=== PATIENT | female | born 2000 | race Caucasian/White ===

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

== ENCOUNTER → 2020-12-23 10:09 | Outpatient (BNVA) | payer MEDICAID, SELFPAY | PROVIDERS: Family Provider Family Medicine; PCP Family Medicine; Visit Provider Family Medicine Adult Medicine | DX: Z34.90 Encounter for supervision of normal pregnancy, unspecified, unspecified trimester (principal) | CPT/HCPCS: 81025 ==

== ENCOUNTER → 2020-12-24 10:22 | Outpatient (BNVA) | payer MEDICAID, SELFPAY | PROVIDERS: Family Provider Family Medicine; PCP Family Medicine; Visit Provider Nurse Practitioner Women's Health | DX: Z34.01 Encounter for supervision of normal first pregnancy, first trimester (principal) | CPT/HCPCS: 84315; 84702 ==

== ENCOUNTER 2021-07-03 22:56 | Inpatient (IN) | payer MEDICAID, SELFPAY ==
[2021-07-03 23:14] VITALS: TEMP 37.2
[2021-07-03 23:15] VITALS: BP 141/100; PULSE 95
[2021-07-03 23:31] VITALS: BP 137/89; PULSE 88
[2021-07-03 23:46] VITALS: BP 146/102; PULSE 85
[2021-07-04] VITALS (40 sets, daily range): BP systolic 118–186; BP diastolic 61–123; PULSE 60–114; RESP 15–18; TEMP 36.8–36.9; O2SAT 96–100
--- NOTE | 2021-07-04 00:23 | USR_ITS ---
PROCEDURE INFORMATION: Exam: US Biophysical Profile Without Non-Stress Test Exam date and time: 07/04/2021 12:23 AM Age: 20 years old Clinical indication: Other: Non reassuring heart tones; ; Additional info: Decreased movement, non reasurring heart tones. 30-31 weeks gestational age. TECHNIQUE: Imaging protocol: US biophysical profile without non-stress testing. COMPARISON: US OB >= 14 weeks fetus [id number] 04/27/2021 1:03 PM FINDINGS: Single living fetus in cephalic position. heart activity documented by the technologist, 153 bpm. Biophysical profile was 10/18. Credit given for amniotic fluid. No credit for breathing, tone, or movement. Anterior placenta. Amniotic fluid volume appears within normal limits for gestation, JET 7.7 cm. measurements were not obtained at this time. Evaluation of anatomy was not performed at this time. Cervical length was estimated with transabdominal scanning, measuring approximately 4.3 cm. No definite cervical canal dilation or fluid on the provided images. The cervix is not well visualized with transabdominal scanning at this time. The urinary bladder was not completely evaluated/imaged at this time. US/US OB BPP wo NST [id number] IMPRESSION: 1. Single living intrauterine fetus, details above. 2. Biophysical profile 10/18, see above details. 3. Amniotic fluid volume appears within normal limits for gestation, JET 7.7 cm. 4. Other details discussed above. Radiation Dose CTDIVOL = (mGy): DLP = (mGy-cm)
[2021-07-04] MEDS: dextrose 5%-lactated ringers 1,000 ML 999 ML IV (01:15)
[2021-07-04] MEDS: labetalol 200 mg Tablet 100 MG PO (01:27)
[2021-07-04 01:32] LABS: Basophils # 0.1 10^3/uL (0.0-0.1); Basophils % 0.3 %; Eosinophils # 0.2 10^3/uL (0.0-0.8); Eosinophils % 1.1 %; Hematocrit 35.4 % (37.0-47.0); Lymphocytes # 4.4 10^3/uL (1.5-6.5); Mean Corpuscular HGB Conc 33.9 g/dL (30.0-36.0); Mean Corpuscular Hemoglobin 31.1 pg (28.0-34.0); Mean Corpuscular Volume 91.7 fl (81-99); Mean Platelet Volume 10.9 fL (7.4-10.4); Monocytes % 6.8 %; Neutrophils # 8.92 10^3/uL (1.8-8.0); Neutrophils % 61.5 %; Nucleated Red Blood Cells % 0 %; Platelet Count 180 10^3/cmm (130-400); Red Blood Count 3.86 10^6/uL (4.1-5.3); Red Cell Distribution Width 12.7 % (12.1-15.1); White Blood Count 14.5 10^3/uL (4.5-13.0)
[2021-07-04 01:33] LABS: Urine Appearance Clear (CLEAR); Urine Color Yellow (Yellow)
[2021-07-04 01:34] LABS: Add Urine Microscopic? YES; Bilirubin Urine Neg (Negative); Blood Urine Neg (Negative); Glucose Urine UA Norm (Normal); Ketones Urine Negative (Negative); Leukocyte Esterase Urine Negative (Negative); Nitrate Urine Negative (Negative); Protein Urine 3+ (Negative); Urobilinogen Urine Norm (Negative); pH Urine 5 (5-7)
[2021-07-04] MEDS: metoclopramide 5 mg/mL SDV 2 mL 10 MG IVP (01:36)
[2021-07-04] MEDS: famotidine 20 mg/2 mL INJ IVP (01:37)
[2021-07-04 01:44] LABS: Add Urine Culture? No; Bacteria Urine 1+ /hpf; Calcium Oxalate Crystals Urine 15-25 /hpf; Hyaline Casts Urine 0-4 /lpf; RBC Urine 0-4 /hpf (0-2); Squamous Epithelial Cell Urine 15-25 /hpf (0-5); WBC Urine 0-4 /hpf (0-5)
[2021-07-04 01:58] LABS: Alanine Aminotransferase 9 U/L (0-33); Albumin Level 3.1 g/dL (3.5-5.2); Alkaline Phosphatase 138 IU/L (35-105); Anion Gap 16.2 (5-19); Aspartate Amino Transferase 13 U/L (0-32); Blood Urea Nitrogen 11 mg/dL (6-20); Calcium 8.9 mg/dL (8.5-10.5); Carbon Dioxide 21 mmol/L (22-29); Chloride 106 mmol/L (98-107); Globulin 2.5 g/dL (1.3-4.6); Glomerular Filtration Rate 127.5 mL/min (90-130); Glucose 110 mg/dL (65-115); Osmolality Calculated 288 mOsm/kg (285-295); Potassium 4.2 mmol/L (3.5-5.1); Sodium 139 mmol/L (136-145); Total Bilirubin 0.2 mg/dL (0.15-1.2); Total Protein 5.6 g/dL (6.6-8.7); Uric Acid 5.9 mg/dL (2.4-5.7)
[2021-07-04 01:59] LABS: Urine Creatinine 109 mg/dL (28-217)
[2021-07-04] MEDS: ketorolac 30 mg/mL INJ IVP ×4 (02:01→21:59)
--- NOTE | 2021-07-04 02:07 | PC.NURSE ---
DR. ZAVALA GAVE PT IM PITOCIN INTO PT UTERUS AT THIS TIME
[2021-07-04 02:13] LABS: UPRO/UCREAT Ratio 3.57 mg/mg CR; Urine Protein Random 389 mg/dL
--- NOTE | 2021-07-04 02:52 | P.HP_ITS ---
Providers/Chief Complaint Admitting Physician: Taryn Dave MD Primary Care Provider: Amauri Elam MD Chief Complaint: Decreased Movement History of Present Illness Digna Juarez is a 20 year old female G1, P0 at 30 weeks 3 days gestation who presented to labor and delivery complaining of decreased movement. She noticed it today and felt it was more pronounced this evening. Her has been complicated by -induced hypertension for which she takes labetalol twice daily. She forgot to take her evening dose and her presenting blood pressure was 141/100. heart tones had minimal variability with no accelerations, despite repositioning and giving the patient orange juice. A biophysical profile was obtained. Biophysical profile was 2 out of 8, only positive for amniotic fluid pocket. Decision was made to proceed with immediate section due to distress Review of Systems Const: Denies: fever(s), chills or change in appetite Eyes: Denies: change in vision ENMT: Denies: throat pain, odynophagia or ear discharge Card: Denies: chest pain, palpitations or irregular heart rhythm Resp: Denies: dyspnea or productive cough GI: Denies: abdominal pain, nausea or vomiting : Denies: flank pain or vaginal bleeding Musc: Denies: limited range of motion Skin/Breast: Denies: rash or pruritus Neuro: Denies: headache(s), numbness in extremities or weakness in extremities Endo: Denies: polyuria or polydipsia Ruel/Lymph: Denies: easy bruising or easy bleeding All/Imm: Denies: urticaria or throat swelling Medications/Allergies Home Medications Medication Instructions Recorded Confirmed Last Taken Type PNV 153-FA 400 mcg-om3 35 mg-dha 2 tab PO DAILY tab 12/24/20 07/04/21 Unknown History 25 mg-epa 5 mg-fish oil chew tablet multivitamin with minerals 1 tab PO DAILY 12/24/20 07/04/21 Unknown History labetalol 1 tab PO BID 07/04/21 07/04/21 07/03/21 08:00 History Allergies Allergy/AdvReac Type Severity Reaction Status Date / Time No Known Allergies Allergy Verified 07/04/21 08:23 PFSH Acute PFSH: Medical History (Updated 07/04/21 @ 03:04 by Taryn Dave MD) No pertinent past medical history neghx: htn,dm,thyroid,DVT/PE PCP: Dr. Pimentel Surgical History (Updated 12/24/20 @ 11:11 by Carrie Jennings APN, WHNP) No pertinent past surgical history Family History Denies family history of Colon cancer Ovarian cancer Diabetes Heart disease Hypercholesteremia Chronic kidney disease (CKD) Breast cancer Bleeding disorder Hypertension Uterine cancer Thyroid disease Stroke Social History Smoking and tobacco status: never smoked Alcohol intake: never Marital status: Single Number of children: 0 Current occupational status: unemployed Vitals/I&O/Wt Last Vital Signs Temp 99.0 F 07/03/21 23:14 Pulse 83 07/04/21 01:02 BP 185/99 07/04/21 01:02 Physical Exam Const: GENERAL APPEARANCE: cooperative, comfortable and anxious (tearful) HENMT: COMMON NORMALS: normocephalic and atraumatic FACE & SINUS: normal facial exam Eye: COMMON NORMALS: Equal, round and reactive pupils present and EOMs intact bilaterally Chest: COMMONS NORMALS: normal inspection of the chest Resp: COMMON NORMALS: normal respiratory effort and No retractions EFFORT & INSPECTION: Yes able to speak in complete sentences AUSCULTATION: clear to auscultation bilaterally Cardio: COMMON NORMALS: regular rate and regular rhythm GI: COMMON NORMALS: Normal to inspection, nondistended, normoactive bowel sounds present, Soft to palpation, non-tender, No hepatosplenomegaly present and no bruits Extremity: COMMON NORMALS: no calf tenderness and no pedal edema Neuro: COMMON NORMALS: patient oriented x3 Data : 07/04/21 01:11 07/04/21 01:11 A&P Assessment and plan (1) with 30 completed weeks gestation: Status: Acute (2) Decreased movement affecting management of mother, antepartum: Status: Acute (3) distress affecting , antepartum: With a biophysical profile of 2 out of 8 only positive for amniotic fluid, we will proceed with emergent section and delivery. 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
--- NOTE | 2021-07-04 02:53 | ANES.PREANE2 ---
Pre-Anesthetic Assessment Pre-Anesthetic Assessment: Height/Weight: Height 1.55 m Temp Pulse BP 99.0 F 83 185/99 07/03/21 23:14 07/04/21 01:02 07/04/21 01:02 Was Beta Brandon taken within 24 hours: N/A Was Clonidine taken within 24 hours: N/A Social: Social History: No tobacco Exam: Pre-Anes Outpt Exam: alert, oriented x 3, clear to auscultation bilaterally and regular rate & rhythm Airway: Submandibular: WNL Cervical ROM: WNL MP: 2 History/ROS: No significant history except as noted Anesthetic Plan: ASA status: 2E Anesthesia: Anesthesia Evaluation and General Risk of > 500 ml blood loss (7ml/kg in children): Yes, adequate IV access and fluids planned PFSH Anesthesia PFSH: Medical History (Updated 12/24/20 @ 11:47 by Carrie Jennings APN, REYNA) No pertinent past medical history neghx: htn,dm,thyroid,DVT/PE PCP: Dr. Pimentel Surgical History (Updated 12/24/20 @ 11:11 by Carrie Jennings APN, REYNA) No pertinent past surgical history Family History Denies family history of Colon cancer Ovarian cancer Diabetes Heart disease Hypercholesteremia Chronic kidney disease (CKD) Breast cancer Bleeding disorder Hypertension Uterine cancer Thyroid disease Stroke Social History Smoking and tobacco status: never smoked Alcohol intake: never Marital status: Single Number of children: 0 Current occupational status: unemployed Data Anesthesia CBC & Chem 7: 07/04/21 01:11 07/04/21 01:11 Other Labs: Laboratory Results - last 48 hr 07/04/21 07/04/21 07/04/21 01:11 01:11 01:11 WBC 14.5 H RBC 3.86 L Hgb 12.0 Hct 35.4 L MCV 91.7 MCH 31.1 MCHC 33.9 RDW 12.7 Plt Count 180 MPV 10.9 H Neut % (Auto) 61.5 Lymph % (Auto) 30.0 [place] % (Auto) 6.8 Eos % (Auto) 1.1 Baso % (Auto) 0.3 Neut # (Auto) 8.92 H Lymph # (Auto) 4.4 [place] # (Auto) 1.0 H Eos # (Auto) 0.2 Baso # (Auto) 0.1 Nucleated RBC % (auto) 0 Nucleated RBCs # 0.0 Sodium Potassium Chloride Carbon Dioxide Anion Gap BUN Creatinine GFR Calculation Glucose Calculated Osmolality Uric Acid Calcium Total Bilirubin AST ALT Alkaline Phosphatase Total Protein Albumin Globulin Urine Color Yellow Urine Appearance Clear Urine pH 5 Ur Specific [place] 1.020 Urine Protein 3+ H Urine Glucose (UA) Norm Urine Ketones Negative Urine Blood Neg Urine Nitrate Negative Urine Bilirubin Neg Urine Urobilinogen Norm Ur Leukocyte Esterase Negative Urine RBC 0-4 H Urine WBC 0-4 H Ur Squamous Epith Cells 15-25 H Calcium Oxalate Crystal 15-25 H Amorphous Sediment Not Reportable Urine Bacteria 1+ H Hyaline Casts 0-4 H U Random Total Protein 389 Urine Creatinine 109 Protein/Creatinin Ratio 3.57 07/04/21 01:11 WBC RBC Hgb Hct MCV MCH MCHC RDW Plt Count MPV Neut % (Auto) Lymph % (Auto) [place] % (Auto) Eos % (Auto) Baso % (Auto) Neut # (Auto) Lymph # (Auto) [place] # (Auto) Eos # (Auto) Baso # (Auto) Nucleated RBC % (auto) Nucleated RBCs # Sodium 139 Potassium 4.2 Chloride 106 Carbon Dioxide 21 L Anion Gap 16.2 BUN 11 Creatinine 0.6 GFR Calculation 127.5 Glucose 110 Calculated Osmolality 288 Uric Acid 5.9 H Calcium 8.9 Total Bilirubin 0.2 AST 13 ALT 9 Alkaline Phosphatase 138 H Total Protein 5.6 L Albumin 3.1 L Globulin 2.5 Urine Color Urine Appearance Urine pH Ur Specific [place] Urine Protein Urine Glucose (UA) Urine Ketones Urine Blood Urine Nitrate Urine Bilirubin Urine Urobilinogen Ur Leukocyte Esterase Urine RBC Urine WBC Ur Squamous Epith Cells Calcium Oxalate Crystal Amorphous Sediment Urine Bacteria Hyaline Casts U Random Total Protein Urine Creatinine Protein/Creatinin Ratio Cardiac Studies: No Data to Display
--- NOTE | 2021-07-04 03:04 | P.OP_ITS ---
Operative Report Date of procedure: July 04, 2021 Pre-op Diagnosis: Failed biophysical profile, distress Post-op diagnosis: same Procedure Done: Primary low transverse section Via Pfannenstiel skin incision Specimens removed/disposition: Vertex female weight 2 pounds 6 ounces Surgeon: Taryn Dave MD Anesthesia: General Estimated blood loss (mL): 400 IV fluids (mL): 1,800 Urine output (mL): 200 Complications: None Condition: stable Disposition: PACU Procedure: After informed consent the patient was taken to the OR where general anesthesia was administered. She was prepped and draped in normal sterile fashion in dorsal supine position with a left lateral tilt. A Pfannenstiel skin incision was made and carried through to the underlying layer of fascia sharply. The fascial incision was extended laterally using the Mayos. The fascia was grasped with Dale clamps and the underlying rectus muscles were dissected off. The peritoneum was entered bluntly and the incision site was manually stretched. The bladder blade was inserted. Uterine incision was made in a transverse fashion in the lower uterine segment. Amniotic rupture of membranes was performed using an Allis clamp and clear fluid was noted. The was delivered atraumatically with bulb suction of the mouth at delivery. The cord was clamped and cut and the infant was handed to the waiting pediatric team. Cord pH was obtained, cord blood was obtained. Placenta was delivered using fundal pressure. The uterus was then exteriorized from the abdomen and a dry sponge was used to clear the uterus of clots and debris. The uterine incision was then repaired using 0 chromic in a running locked fashion. A second layer of the same suture was used in an imbricating manner. The uterus remained kind of floppy so 10 units of Pitocin was injected directly into the uterine fundus. The uterus was then returned to the abdomen and irrigation was used to clear the gutters of clots and debris. Uterine incision was reinspected for hemostasis. The peritoneum was reapproximated using 4-0 Vicryl but was extremely thin and friable and omentum kept poking up through, so the rectus muscles were gently reapproximated using 4-0 Vicryl. The subfascial tissue was inspected for hemostasis and the fascia was then reapproximated using 0 Vicryl in a running fashion. The subcutaneous tissue was irrigated. The subcutaneous tissue was then reapproximated using 4-0 Vicryl in a running fashion. The skin was then reapproximated using 4-0 Vicryl in a running fashion on a Cortes needle. Steri- Strips and a pressure bandage were applied the patient went to recovery in good condition. Sponge instrument and needle counts were correct.
[2021-07-04] MEDS: magnesium sulfate premix 4 GM/100 ML PREMIX IV (04:05)
[2021-07-04] MEDS: magnesium sulfate premix 20 GM/500 ML BAG IV ×2 (04:25→14:30)
[2021-07-04 04:58] LABS: Amphetamines Screen Urine Negative (Negative); Barbiturates Screen Urine Negative (Negative); Benzodiazepines Screen Urine Negative (Negative); Cocaine Screen Urine Negative (Negative); Opiate Screen Urine Negative (Negative); PCP Screen Urine Negative (Negative); THC Screen Urine Positive (Negative)
[2021-07-04] MEDS: dextrose 5%-lactated ringers 1,000 ML 75 ML IV ×2 (07:39→19:46)
--- NOTE | 2021-07-04 08:39 | ANE.PACU2 ---
Inpatient post-anesthesia follow up: Airway intact: Yes Vital signs: Temperature 99.0 F Pulse Rate 83 Respiratory Rate Blood Pressure 185/99 Pulse Oximetry Oxygen Delivery Me thod Oxygen Flow Rate Fraction of Inspir ed Oxygen Hydration adequate: Yes Nausea and vomiting: No Pain level: 2 Mental status: Baseline
[2021-07-04] MEDS: betamethasone susp 6 mg/mL 5 mL 12 MG IM (10:07)
[2021-07-04] MEDS: citric acid-sodium citrate 30 mL UDC PO (10:08)
--- NOTE | 2021-07-04 12:45 | PM.PN ---
Subjective Subjective: Interval history: Doing fine, feels a little loopy headed. Vitals/I&O/Wt Last Vital Signs Temp 99.0 F 07/03/21 23:14 Pulse 90 07/04/21 12:19 Resp 18 07/04/21 12:19 BP 133/78 07/04/21 12:19 Pulse Ox 98 07/04/21 12:19 07/03/21 07/04/21 07/04/21 22:59 06:59 14:59 Intake Total 1800 / 1800 Output Total 465 / 465 933 / 933 Balance -465 / -465 867 / 867 Physical Exam Narrative: EXAM NARRATIVE: Alert and oriented, sitting up in bed, lungs clear to auscultation bilaterally, heart regular rate and rhythm, abdomen is soft, pressure bandage still in place and is clean dry and intact. Urinary Catheter Management^: Hyde: Cath Placed During This Visit: yes Urinary Catheter Date of Insertion: 07/04/21 Urinary Catheter Time of Insertion: 01:40 Data : 07/04/21 16:06 07/04/21 01:11 A&P Assessment and plan (1) Severe pre-eclampsia: The patient is currently on magnesium and has had low normal urine output. We will continue her on magnesium until she begins to diurese. Her pressures have been controlled since the start of the magnesium and hypertensive protocol is in place. Status: Acute (2) Status post emergency section: General anesthesia. Infant has been shipped to [place]. 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 Fwd Diagnoses Severe pre-eclampsia O14.10 Status post emergency section Z98.891 -induced hypertension in third trimester O13.3 distress affecting , antepartum O36.8990 Decreased movement affecting management of mother, antepartum O36.8190 Fetus number: single or unspecified fetus with 30 completed weeks gestation Z3A.30
[2021-07-04 16:22] LABS: Hematocrit 32.3 % (37.0-47.0); Hemoglobin 10.9 g/dL (11.5-15.3); Mean Corpuscular HGB Conc 33.7 g/dL (30.0-36.0); Mean Corpuscular Hemoglobin 31.7 pg (28.0-34.0); Mean Corpuscular Volume 93.9 fl (81-99); Platelet Count 183 10^3/cmm (130-400); Red Blood Count 3.44 10^6/uL (4.1-5.3); Red Cell Distribution Width 12.8 % (12.1-15.1); White Blood Count 19.8 10^3/uL (4.5-13.0)
[2021-07-05] VITALS (24 sets, daily range): BP systolic 121–166; BP diastolic 63–107; PULSE 79–99; RESP 14–18; TEMP 36.8–36.9; O2SAT 97–100
[2021-07-05] MEDS: magnesium sulfate premix 20 GM/500 ML BAG IV (00:33)
[2021-07-05] MEDS: acetaminophen 325 mg Tablet 650 MG PO (00:37)
[2021-07-05] MEDS: docusate sodium 100 mg Capsule PO ×2 (09:45→18:36)
[2021-07-05] MEDS: prenatal vitamin Capsule 1 CAP PO (09:46)
[2021-07-05] MEDS: ferrous sulfate EC 325 mg Tablet PO (09:46)
[2021-07-05] MEDS: labetalol 200 mg Tablet 100 MG PO ×2 (12:10→21:08)
--- NOTE | 2021-07-05 12:55 | P.PN_ITS ---
Subjective Subjective: Interval history: She has been diuresing well overnight. Her magnesium was discontinued this morning around 4:00. She is passing flatus and tolerating a regular diet. She has not been up to walk yet but that is the plan for this afternoon. Vitals/I&O/Wt Last Vital Signs Temp 98.3 F 07/05/21 03:10 Pulse 97 07/05/21 11:25 Resp 18 07/05/21 11:25 BP 161/93 07/05/21 11:42 Pulse Ox 98 07/05/21 11:25 07/04/21 07/05/21 07/05/21 22:59 06:59 14:59 Intake Total 1133.75 / 3433.75 1635.833 / 5069.583 150 / 150 Output Total 1425 / 2633 1655 / 4288 1615 / 1615 Balance -291.25 / 800.75 -19.167 / 781.583 -1465 / -1465 Physical Exam Const: COMMON NORMALS: no acute distress GENERAL APPEARANCE: cooperative and comfortable HENMT: COMMON NORMALS: normocephalic and atraumatic HEAD & SCALP: normocephalic and atraumatic Resp: COMMON NORMALS: normal respiratory effort and No retractions Cardio: COMMON NORMALS: regular rate and regular rhythm RATE: regular rate RHYTHM: regular rhythm GI: COMMON NORMALS: Soft to palpation PALPATION: Yes Soft to palpation, Yes Tenderness to palpation present (GI) (Appropriate postoperative), No Guarding due to palpation present (GI) and No Rigid due to palpation Extremity: GENERAL: No calf tenderness and Yes edema Urinary Catheter Management^: Hyde: Cath Placed During This Visit: yes Reason for Continuing Indwelling Catheter: Accurate Measurement of Urinary Out put in Critically Ill Patients Urinary Catheter Date of Insertion: 07/04/21 Urinary Catheter Time of Insertion: 01:40 Data : 07/04/21 16:06 07/04/21 01:11 A&P Assessment and plan (1) Status post emergency section: Postop day #1 doing well. Now that she is off the magnesium we can encourage ambulation Status: Acute (2) Severe pre-eclampsia: Her blood pressures are trending upward after discontinuing the magnesium. She had a systolic greater than 165 on bedrest. I went ahead and initiated her labetalol 100 mg twice daily. She is anxious to be discharged to go be with the infant up in [place] but we need to ensure her safety. Likely discharge home in the morning. 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
[2021-07-05] MEDS: HYDROcodone-acetaminophen 5-325 mg Tablet PO ×2 (12:58→19:45)
[2021-07-05] MEDS: ibuprofen 800 mg tablet PO ×2 (15:42→21:08)
[2021-07-06] VITALS (9 sets, daily range): BP systolic 124–147; BP diastolic 72–93; PULSE 74–107; RESP 14–16; TEMP 36.9–37; O2SAT 98–99
--- NOTE | 2021-07-06 08:14 | P.DS_ITS ---
Discharge Providers SOCIAL SCIENCES DEPARTMENT CHAIR Date of Admission: 07/03/21 22:56 Date of Discharge: 07/06/21 Attending Provider at Admission: Taryn Dave MD Attending Provider at Discharge: Taryn Dave MD Primary Care Provider: Amauri Elam MD Diagnoses at Discharge Discharge Diagnosis (1) Severe pre-eclampsia: Status: Acute (2) Status post emergency section: Status: Acute (3) -induced hypertension in third trimester: Status: Acute (4) distress affecting , antepartum: Status: Acute (5) Decreased movement affecting management of mother, antepartum: Status: Acute Qualifiers: Fetus number: single or unspecified fetus Qualified Code(s): O36.8190 - Decreased movements, unspecified trimester, not applicable or unspecified (6) with 30 completed weeks gestation: Status: Acute Reason for Visit Reason for Visit: Decreased Movement Hospital Course Hospital Course This is a 20-year-old G1 now P1 who is status post emergent primary section for distress. The patient presented to labor and delivery at 30 weeks 3 days gestation complaining of decreased movement. Her had been complicated by -induced hypertension for which she took labetalol. heart tones had minimal variability with no accelerations so a biophysical profile was obtained and was found to be 2 out of 8 only positive for fluid. Emergent section was performed. After delivery her PIH labs had resulted and she had 3+ protein in her urine, along with some severely elevated blood pressures, thus she was diagnosed with severe preeclampsia and was started on magnesium. The patient did well postoperatively. On postop day #1 she had begun to diurese well so the magnesium was discontinued. Off the magnesium her blood pressures began to rise to the severe range so she was started on labetalol p.o. At discharge her pressures were mildly elevated 142/92. She was ambulating, tolerating a regular diet, and had good pain control. She was anxious to be discharged to join her infant at the NICU in [place]. Information Peripartum Data: Infant Delivery Method: Physical Exam Narrative: EXAM NARRATIVE: Alert and oriented, sitting up in bed watching TV, lungs clear to auscultation bilaterally, heart regular rate and rhythm, abdomen is soft, incision is clean dry and intact with Steri-Strips in place, no calf tenderness. Urinary Catheter Management^: [place]: Cath Placed During This Visit: yes, but has since been removed by the nurse Reason for Continuing Indwelling Catheter: Decision to DC Catheter Urinary Catheter Date of Insertion: 07/04/21 Urinary Catheter Time of Insertion: 01:40 Date Urinary Catheter Removed: 07/05/21 Time Urinary Catheter Discontinued: 17:35 Discharge Data Data Completed and Pending: Completed Studies During Hospitalization Category Date Time Status US OB BPP w o NST 58111 Stat Ultrasound 07/04/21 00:23 Completed Pending at discharge Category Date Time Status Pathology: Surgic al [PTH] Routine Pth 07/04/21 01:53 Received Vitals: Last Vital Signs Temp 98.4 F 07/06/21 04:40 Pulse 90 07/06/21 08:00 Resp 16 07/06/21 08:00 BP 142/92 07/06/21 08:00 Pulse Ox 99 07/06/21 08:00 Discharge Plan Discharge Patient Disposition: Home Condition: Stable Prescriptions: New ibuprofen 800 mg Tablet 800 mg PO TID PRN (Reason: Abdominal Discomfort) Qty: 30 RF: 0 hydrocodone-acetaminophen 5-325 mg Tablet 1 - 2 tab PO Q4H PRN (Reason: Moderate To Severe Pain) Qty: 20 RF: 0 docusate sodium 100 mg Capsule 100 mg PO BID Qty: 60 RF: 0 Continued multivitamin with minerals [Hair,Skin and Nails] Tablet 1 tab PO DAILY RF: 0 Gummies 400 mcg-35 mg- 25 mg-5 mg tablet,chewable 2 tab PO DAILY RF: 0 labetalol 100 mg tablet 1 tab PO BID Qty: 60 RF: 0 Discharge Orders: Discharge Order (Routine); Ordered 07/06/21 Ordered By: Taryn Dave Referrals: Taryn Dave MD [Physician] - 1 week Discharge Diet: Usual diet Discharge Activity: Limit activity as instructed Patient Instructions: Opioid Safety Discharge Attestations SOCIAL SCIENCES DEPARTMENT CHAIR Time Spent in Discharge Care*: less than 30 min Coding Level of Care Code Acute Sports Equipment Racker for Chg Fwd Diagnoses Severe pre-eclampsia O14.10 Status post emergency section Z98.891 -induced hypertension in third trimester O13.3 distress affecting , antepartum O36.8990 Decreased movement affecting management of mother, antepartum O36.8190 Fetus number: single or unspecified fetus with 30 completed weeks gestation Z3A.30
[2021-07-06] MEDS: labetalol 200 mg Tablet 100 MG PO (09:41)
[2021-07-06] MEDS: docusate sodium 100 mg Capsule PO (09:41)
[2021-07-06] MEDS: prenatal vitamin Capsule 1 CAP PO (09:41)
[2021-07-06] MEDS: HYDROcodone-acetaminophen 5-325 mg Tablet PO (09:41)
[2021-07-06] MEDS: ibuprofen 800 mg tablet PO (09:41)
[2021-07-06] MEDS: ferrous sulfate EC 325 mg Tablet PO (09:42)
--- NOTE | 2021-07-06 10:29 | PC.NURSE ---
ROLLY missed, called to Dr Dave nurse and made aware for 1 week follow up.
== END 2021-07-06 10:10 | disposition home or self-care (01) | DRG 788 ==
LOC: OPOB 23:02 → OBGYN 07-04 02:05
PROVIDERS: Admitting Provider Family Medicine; PCP Family Medicine; Visit Provider Family Medicine
PROC: 10D00Z1 Extraction of Products of Conception, Low, Open Approach (ICD-10-PCS; CPT 59514; principal; 2021-07-04 01:15)
DX: O14.14 Severe pre-eclampsia complicating childbirth (principal); Z3A.30 30 weeks gestation of pregnancy; Z37.0 Single live birth; O36.8130 Decreased fetal movements, third trimester, not applicable or unspecified; O77.9 Labor and delivery complicated by fetal stress, unspecified
CPT/HCPCS: 36415; 59025; 76819; 80053; 80306; 81001; 82570; 84156; 84550; 85025; 85027; 88307; 96372; 99211; J0330; J0702; J1100; J1885; J2405; J2704; J2765; J3010; J3475; J3490; J7030

== ENCOUNTER 2024-08-08 17:37 | Emergency (ER) | payer MEDICAID, SELFPAY ==
[2024-08-08 17:43] VITALS: BP 116/77; PULSE 75; RESP 14; TEMP 36.9; O2SAT 99
[2024-08-08 17:48] VITALS: BP 93/57; BP 94/57; BP 96/48; PULSE 58; PULSE 60; PULSE 85
--- NOTE | 2024-08-08 18:06 | ED_ITS ---
HPI - Seizure 2 General: Chief Complaint: Seizure Stated Complaint: poss seizure, passed out involuntary movement Time Seen by Provider: 08/08/24 17:41 History of Present Illness: HPI Narrative: 23-year-old female who presents to the e mergency room with complaints of episode of passing out 2 days ago. She been standing for period time Lightheaded and dizzy count of anticipated slowly went down to try to sit on the ground and then passed out she remembers everything that happened including having some involuntary movements this lasted for just a few seconds to maybe a minute she said she hit her head on a chair about 10 times. Did not bite her tongue no loss of bowel or bladder control she had a similar episode about a month prior where she been standing for period of time as well. No recent illness no nausea vomiting diarrhea. Associated symptoms: Deny chest pain, chills or fever(s) Related Data Previous Rx's Medication Instructions Recorded sulfamethoxazole 800 1 tab PO BID 7 days #14 tabs 06/29/24 mg-trimethoprim 160 mg tablet (Bactrim DS) Allergies Allergy/AdvReac Type Severity Reaction Status Date / Time No Known Allergies Allergy Verified 08/08/24 17:48 Review of Systems 2 Const: Denies: fever(s) or chills Card: Denies: chest pain Resp: Denies: dyspnea GI: Denies: abdominal pain : Denies: dysuria, urinary frequency or urinary urgency Musc: Denies: neck pain or back pain Skin/Breast: Denies: rash PFSH ED 2 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 Pimentel Surgical History No pertinent past surgical history Family History Denies family history of Colon cancer Ovarian cancer Diabetes Heart disease Hypercholesteremia Chronic kidney disease (CKD) Breast cancer Bleeding disorder Hypertension Uterine cancer Thyroid disease Stroke Social History Smoking and tobacco/nicotine status: current every day tobacco/nicotine user Alcohol intake: never Substance/Drug Use: never Marital status: Single Number of children: 0 Current occupational status: unemployed Female Reproductive History: Date of last menstrual period: 07/04/24 Physical Exam 2 Const: COMMON NORMALS: no acute distress GENERAL APPEARANCE: cooperative and comfortable ORIENTATION/CONSCIOUSNESS: Yes awake, Yes oriented to person, Yes oriented to place and Yes oriented to time HENMT: COMMON NORMALS: normocephalic, atraumatic and hearing grossly normal bilaterally HEAD & SCALP: normocephalic and atraumatic Resp: COMMON NORMALS: normal respiratory effort, No retractions, No use of accessory muscles and clear to auscultation bilaterally AUSCULTATION: clear to auscultation bilaterally Cardio: COMMON NORMALS: regular rate, regular rhythm and No murmurs present (Cardio) RATE: regular rate RHYTHM: regular rhythm GI: COMMON NORMALS: Soft to palpation and No hepatosplenomegaly present A USCULTATION: Yes normoactive bowel sounds PALPATION: Yes Soft to palpation, No Tenderness to palpation present (GI), No Guarding due to palpation present (GI) and Yes No hepatosplenomegaly present Extremity: COMMON NORMALS: normal to inspection, capillary refill normal, no clubbing, cyanosis or edema, no calf tenderness and no pedal edema Neuro: SENSORIUM/ORIENTATION: Yes oriented to person, Yes oriented to place and Yes oriented to time Skin: COMMON NORMALS: no rashes or lesions noted GENERAL SKIN EXAM: no rashes or lesions noted Course 2 Vital Signs: Vital signs: Vital Signs Temperature 98.4 F 08/08/24 17:43 Pulse Rate 72 08/08/24 19:54 Respiratory Rate 17 08/08/24 19:54 Blood Pressure 96/46 08/08/24 19:54 Pulse Oximetry 97 08/08/24 19:54 Oxygen Delivery Me thod Room Air 08/08/24 19:54 MDM - Seizure MDM Narrative Medical decision making narrative: Patient's description of events she remembers most everything that happened she never had a postictal phase I do not believe she actually had a seizure. Talking to her more she is lost over 100 pounds in the last year. Believe she had an orthostatic hypotension was probably what happened the last episode as well. In addition to this patient reporting that she frequently gets stomach upset and feels like she has food sitting. For a while she noticed that when she almost anything she ate seem to precipitated suspect given her massive weight loss where she lost nearly 50% of her body weight in less than a year she is probably having biliary colic symptoms. If this persists or recurs she should follow-up with her primary care doctor and have that evaluated. Encourage fluid intake follow-up with your primary care doctor. Lab Data 08/08/24 18:03 08/08/24 18:03 Labs: Radiology Impressions Head CT 08/08/24 18:13 IMPRESSION: No CT evidence of acute intracranial pathology. Laboratory Results WBC 8.55 10^3/uL (3.29-11.43) 08/08/24 18:03 RBC 4.11 10^6/uL (3.85-5.65) 08/08/24 18:03 Hgb 12.30 g/dL (11.27-16.99) 08/08/24 18:03 Hct 37.2 % (36-47) 08/08/24 18:03 MCV 90.5 fl (85-98) 08/08/24 18:03 MCH 29.9 pg (27-33) 08/08/24 18:03 MCHC 33.1 g/dL (30-55) 08/08/24 18:03 RDW 12.3 % (12.1-15.1) 08/08/24 18:03 Plt Count 200 10^3/cmm (157-399) 08/08/24 18:03 MPV 9.9 fL (7.4-10.4) 08/08/24 18:03 Neut % (Auto) 54.8 % 08/08/24 18:03 Lymph % (Auto) 35.9 % 08/08/24 18:03 Louisa % (Auto) 6.9 % 08/08/24 18:03 Eos % (Auto) 1.4 % 08/08/24 18:03 Baso % (Auto) 0.6 % 08/08/24 18:03 Neut # (Auto) 4.69 10^3/uL (1.8-7.7) 08/08/24 18:03 Lymph # (Auto) 3.1 10^3/uL (0.8-4.8) 08/08/24 18:03 Louisa # (Auto) 0.6 10^3/uL (0.2-0.9) 08/08/24 18:03 Eos # (Auto) 0.1 10^3/uL (0.0-0.8) 08/08/24 18:03 Baso # (Auto) 0.1 10^3/uL (0.0-0.1) 08/08/24 18:03 Nucleated RBC % (auto) 0 % 08/08/24 18:03 Nucleated RBCs # 0.0 /100WBC 08/08/24 18:03 Sodium 135 mmol/L (136-145) L 08/08/24 18:03 Potassium 4.0 mmol/L (3.5-5.1) 08/08/24 18:03 Chloride 100 mmol/L (98-107) 08/08/24 18:03 Carbon Dioxide 27 mmol/L (22-29) 08/08/24 18:03 Anion Gap 12.0 (5-19) 08/08/24 18:03 BUN 15 mg/dL (6-20) 08/08/24 18:03 Creatinine 0.8 mg/dL (0.5-0.9) 08/08/24 18:03 GFR Calculation 88.9 mL/min (90-130) L 08/08/24 18:03 Glucose 70 mg/dL (65-115) 08/08/24 18:03 Calculated Osmolality 279 mOsm/kg (285-295) L 08/08/24 18:03 Calcium 9.1 mg/dL (8.5-10.5) 08/08/24 18:03 Magnesium 1.9 mg/dL (1.7-2.3) 08/08/24 18:03 Total Bilirubin 0.3 mg/dL (0.15-1.2) 08/08/24 18:03 AST 11 U/L (0-32) 08/08/24 18:03 ALT 9 U/L (0-33) 08/08/24 18:03 Alkaline Phosphatase 44 U/L (35-105) 08/08/24 18:03 Total Protein 5.9 g/dL (6.6-8.7) L 08/08/24 18:03 Albumin 4.1 g/dL (3.5-5.2) 08/08/24 18:03 Globulin 1.8 g/dL (1.3-4.6) 08/08/24 18:03 HCG, Qual Negative (Negative) 08/08/24 18:03 Urine Color Yellow (Yellow) 08/08/24 18:37 Urine Appearance Clear (CLEAR) 08/08/24 18:37 Urine pH 6.0 (5-7) 08/08/24 18:37 Ur Specific [place] 1.024 (1.005-1.030) 08/08/24 18:37 Urine Protein Negative (Negative) 08/08/24 18:37 Urine Glucose (UA) Negative (Normal) 08/08/24 18:37 Urine Ketones Negative (Negative) 08/08/24 18:37 Urine Blood Negative (Negative) 08/08/24 18:37 Urine Nitrate Negative (Negative) 08/08/24 18:37 Urine Bilirubin Negative (Negative) 08/08/24 18:37 Urine Urobilinogen 1.0 mg/dL (Negative) 08/08/24 18:37 Ur Leukocyte Esterase Negative (Negative) 08/08/24 18:37 Urine RBC 0-2 /hpf (0-2) 08/08/24 18:37 Urine WBC 0-5 /hpf (0-5) 08/08/24 18:37 Ur Squamous Epith Cells 0-5 /hpf (0-5) 08/08/24 18:37 Amorphous Sediment Not Reportable 08/08/24 18:37 Urine Bacteria None seen /hpf (NONE) 08/08/24 18:37 Hyaline Casts 0.40 /lpf 08/08/24 18:37 All radiology interpretation(s) finalized by discharge Discharge Plan Discharge Patient Disposition: Home Clinical Impression: Orthostatic hypotension Condition: Stable Prescriptions: No Action sulfamethoxazole-trimethoprim [Bactrim DS] 800-160 mg tablet 1 tab PO BID 7 Days Qty: 14 0RF Discharge Orders: Discharge ED (Routine); Ordered 08/08/24 Ordered By: Randolph Beltran Referrals: Amauri Elam MD [Primary Care Provider] - Discharge Diet: Usual diet Discharge Activity: Increase activity as tolerated Patient Instructions: Syncope (ED), Opioid Safety, Pain Management Activity Restrictions/Additional Instructions: Thank you for choosing [facility] for your healthcare needs today. It is very important that you follow up as instructed or that you return to the Emergency Department should you have concerns or if your condition changes or worsens in any way. You were seen in the emergency room after a syncopal episode. From your description things suspect that the episode is precipitated by drop in your blood pressure. This is called orthostatic hypotension. This is likely related to the profound weight loss you have had in the last year. Increase fluid intake. If you have recurrent episodes follow-up with your doctor or return to the emergency room. Coding Level of Care Code ED Television Director for Cyrus Toth
--- NOTE | 2024-08-08 18:11 | ECG_ITS ---
[facility] Date: 2024-08-08 Pat Name: Digna Juarez Department: Room: Gender: Female Favor Maker: : 2000 Requested By: Randolph Robertson Order Number: [id number] Joao MD: Davin Hunter M.D. Measurements Intervals [place] Rate: 55 P: 64 OH: 116 QRS: 71 QRSD: 89 T: 52 QT: 387 QTc: 371 Interpretive Statements SINUS BRADYCARDIA WITH SHORT OH INTERVAL No previous ECG available for comparison Electronically Signed On 08-09-2024 10:25:22 CATASTROPHE CLAIMS SUPERVISOR by Davin Hunter M.D. [email or web address]
[2024-08-08 18:13] LABS: Basophils # 0.1 10^3/uL (0.0-0.1); Basophils % 0.6 %; Eosinophils # 0.1 10^3/uL (0.0-0.8); Eosinophils % 1.4 %; Hematocrit 37.2 % (36-47); Lymphocytes # 3.1 10^3/uL (0.8-4.8); Lymphocytes % 35.9 %; Mean Corpuscular HGB Conc 33.1 g/dL (30-55); Mean Corpuscular Hemoglobin 29.9 pg (27-33); Mean Corpuscular Volume 90.5 fl (85-98); Mean Platelet Volume 9.9 fL (7.4-10.4); Monocytes # 0.6 10^3/uL (0.2-0.9); Monocytes % 6.9 %; Neutrophils # 4.69 10^3/uL (1.8-7.7); Neutrophils % 54.8 %; Nucleated Red Blood Cells % 0 %; Platelet Count 200 10^3/cmm (157-399); Red Blood Count 4.11 10^6/uL (3.85-5.65); Red Cell Distribution Width 12.3 % (12.1-15.1); White Blood Count 8.55 10^3/uL (3.29-11.43)
--- NOTE | 2024-08-08 18:13 | CTR_ITS ---
PROCEDURE INFORMATION: Exam: CT Head Without Contrast Exam date and time: 08/08/2024 6:33 PM Age: 23 years old Clinical indication: Coma or unconsciousness and syncope and collapse; Patient HX: Possible seizure with loc. ; Additional info: Loss conscious TECHNIQUE: Imaging protocol: Computed tomography of the head without contrast. Axial, coronal and sagittal reformatted images were created and reviewed. Radiation optimization: All CT scans at this facility use at least one of these dose optimization techniques: automated exposure control; mA and/or kV adjustment per patient size (includes targeted exams where dose is matched to clinical indication); or iterative reconstruction. COMPARISON: No relevant prior studies available. RADIATION DOSE METRICS: Total DLP (mGy-cm): 966.44 FINDINGS: Brain: No CT evidence of acute intracranial hemorrhage or acute territorial infarction. No significant mass effect or midline shift. Basal cisterns patent. Cerebral ventricles: Normal in size and configuration. Paranasal sinuses: Unremarkable. No fluid levels. Mastoid air cells: Grossly unremarkable. Bones: Unremarkable. No acute fracture. Soft tissues: Grossly unremarkable. CT/CT head wo con* [id number] IMPRESSION: No CT evidence of acute intracranial pathology.
[2024-08-08 18:25] LABS: HCG, Serum Qual Negative (Negative)
[2024-08-08 18:26] LABS: Alanine Aminotransferase 9 U/L (0-33); Albumin Level 4.1 g/dL (3.5-5.2); Alkaline Phosphatase 44 U/L (35-105); Aspartate Amino Transferase 11 U/L (0-32); Blood Urea Nitrogen 15 mg/dL (6-20); Calcium 9.1 mg/dL (8.5-10.5); Carbon Dioxide 27 mmol/L (22-29); Chloride 100 mmol/L (98-107); Creatinine Clr Calc Pharmacy 87.1092; Globulin 1.8 g/dL (1.3-4.6); Glomerular Filtration Rate 88.9 mL/min (90-130); Glucose 70 mg/dL (65-115); Magnesium 1.9 mg/dL (1.7-2.3); Osmolality Calculated 279 mOsm/kg (285-295); Sodium 135 mmol/L (136-145); Total Bilirubin 0.3 mg/dL (0.15-1.2); Total Protein 5.9 g/dL (6.6-8.7)
[2024-08-08 18:45] LABS: Bilirubin Urine Negative (Negative); Blood Urine Negative (Negative); Glucose Urine UA Negative (Normal); Ketones Urine Negative (Negative); Leukocyte Esterase Urine Negative (Negative); Nitrate Urine Negative (Negative); Protein Urine Negative (Negative); Specific Gravity, Urine 1.024 (1.005-1.030); Urine Appearance Clear (CLEAR); Urine Color Yellow (Yellow)
[2024-08-08 18:49] LABS: Add Urine Microscopic? YES; Bacteria Urine None Seen /hpf; RBC Urine 0-2 /hpf (0-2); Squamous Epithelial Cell Urine 0-5 /hpf (0-5); WBC Urine 0-5 /hpf (0-5)
[2024-08-08 19:54] VITALS: BP 96/46; PULSE 72; RESP 17; O2SAT 97
== END 2024-08-08 20:01 | disposition home or self-care (01) ==
PROVIDERS: Emergency Provider Family Medicine; PCP Family Medicine
DX: I95.1 Orthostatic hypotension (principal); Z72.0 Tobacco use
CPT/HCPCS: 36415; 70450; 80053; 81001; 83735; 84703; 85025; 93005; 99284

== ENCOUNTER 2024-12-09 19:28 | Emergency (ER) | payer SELFPAY ==
[2024-12-09 19:30] VITALS: BP 131/82; PULSE 113; RESP 18; TEMP 37.4; O2SAT 99; BMI 25.4
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
[2024-12-09 20:08] VITALS: BP 106/68; PULSE 85; RESP 16; O2SAT 98
[2024-12-09] MEDS: bacitracin ointment Pkt 1 EACH TOPICAL (20:10)
== END 2024-12-09 20:01 | disposition home or self-care (01) ==
PROVIDERS: Emergency Provider Physician Assistant; PCP Family Medicine
DX: L03.011 Cellulitis of right finger (principal); F41.9 Anxiety disorder, unspecified; R23.2 Flushing; Z3A.16 16 weeks gestation of pregnancy
CPT/HCPCS: 99283; J9999

== ENCOUNTER 2025-05-19 05:10 | Inpatient (IN) | payer BC, MEDICAID, SELFPAY ==
[2025-05-19] VITALS (100 sets, daily range): BP systolic 90–120; BP diastolic 43–83; PULSE 53–114; RESP 16–18; TEMP 36.9; O2SAT 87–100; BMI 32.3
--- OUTSIDE RECORDS SUMMARY | 2025-05-19 05:12 | XMS_ITS | Clinical Summary ---
Author Organization [facility] Address [address] Attn: [place] [id number] Care Team Providers Care Valuer Name Role Phone Jan Bennett MD Primary Care Provider [phone] Allergies No known active allergies Medications No known medications Social History Tobacco Use Types Packs/Day Years Used Date Smoking Tobacco: Unknown Alcohol Use Standard Drinks/Week Comments No 0 (1 standard drink = 0.6 oz pur e alcohol) Feeling Safe Answer Date Recorded Are you in a relationship wi th someone who hurts you emotionally and/or physically? 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 Gender Identity Not on file Sexual Orientation Not on file Last Filed Vital Signs Vital Sign Reading Time Taken Comments Blood Pressure 122/80 09/16/2023 10:32 AM CUPOLA PATCHER Pulse - - Temperature 36.9 C (98.4 F) 09/16/2023 10:32 AM CUPOLA PATCHER Respiratory Rate 20 09/16/2023 10:32 AM CUPOLA PATCHER Oxygen Saturation 98% 09/16/2023 10:32 AM CUPOLA PATCHER Inhaled Oxygen Concentration - - Weight 56.8 kg (125 lb 3.5 oz) 09/16/2023 10:32 AM CUPOLA PATCHER Height 154.9 cm (5' 1 ) 09/16/2023 10:32 AM CUPOLA PATCHER Body Mass Index 23.66 09/16/2023 10:32 AM CUPOLA PATCHER Plan of Treatment Health Maintenance Due Date Last Done Comments HPV VACCINES (1 - 3-dose series) 11/13/2015 DTAP/TDAP/TD VACCINES (1 - Tdap) 11/13/2019 HEPATITIS B VACCINES (1 of 3 - 19+ 3-dose series) 01/2020 CERVICAL CANCER SCREENING 2021 HPV/Cotest (21-29) 2021 PAP SMEAR 2021 INFLUENZA VACCINE (#1) [address] [facility] [id number] Care Teams Valuer Relationship Specialty Start Date End Date Jan Bennett MD [address] [place] [id number] PCP - General Family Practice 03/06/15
[2025-05-19 05:40] LABS: Hematocrit 33.0 % (36-47); Hemoglobin 10.80 g/dL (11.27-16.99); Mean Corpuscular HGB Conc 32.7 g/dL (30-55); Mean Corpuscular Hemoglobin 29.3 pg (27-33); Mean Corpuscular Volume 89.7 fl (85-98); Nucleated Red Blood Cells % 0 %; Platelet Count 192 10^3/cmm (157-399); Red Blood Count 3.68 10^6/uL (3.85-5.65); White Blood Count 11.31 10^3/uL (3.29-11.43)
--- NOTE | 2025-05-19 06:33 | ANES.PREANE2 ---
Pre-Anesthetic Assessment Height/Weight: Height 5 ft 1 in Weight 171 lb Temp Pulse Resp BP O2 Del Method 98.4 F 96 18 106/66 Room Air 05/19/25 05:21 05/19/25 05:47 05/19/25 05:21 05/19/25 05:47 05/19/25 05:00 Preop Diagnosis: Scheduled Operation Date: 05/19/25 07:20 Proposed Procedures p Section Repeat 73666(Not Applicable) - Amauri Elam MD Was Beta Brandon taken within 24 hours: N/A Was Clonidine taken within 24 hours: N/A Social No alcohol and No tobacco Exam alert, oriented x 3, clear to auscultation bilaterally and regular rate & rhythm Airway Submandibular: within normal limits Cervical ROM: within normal limits Mallampati: Class I Dentition: full Anesthetic Plan ASA status: 2 Anesthesia: Regional (specify below) Other: G2, P1 here for scheduled . Prior was emergent Denies any issues during Denies any cardiac or pulmonary issues Labs reviewed acceptable for procedure Plan for routine with spinal Medications/Allergies Home Medications ?Medication ?Instructions ?Recorded ?Confirmed ?Last Taken ?Type sulfamethoxazole 800 1 tab PO BID 7 days #14 tabs 06/29/24 06/29/24 Unknown Rx mg-trimethoprim 160 mg tablet (Bactrim DS) mupirocin 2 % topical ointment 1 applic topical DAILY #15 grams 12/09/24 Unknown Rx aspirin 81 mg tablet,delayed 1 mg PO 1XD 05/19/25 05/19/25 1 Day Ago History release ~05/18/25 escitalopram oxalate 10 mg tablet 1 mg PO 1XD 05/19/25 05/19/25 05/18/25 14:00 History vit no.95-ferrous 1 tab PO DAILY 05/19/25 05/19/25 05/18/25 14:00 History fumarate 28 mg-folic acid 800 mcg tablet () Allergies Allergy/AdvReac Type Severity Reaction Status Date / Time No Known Allergies Allergy Verified 08/08/24 17:48 [facility] Anesthesia Medical History (Updated 12/17/24 @ 00:00 by RICHARD Monk) No pertinent past medical history neghx: htn,dm,thyroid,DVT/PE PCP: Dr. Pimentel Surgical History No pertinent past surgical history Family History Denies family history of Colon cancer Ovarian cancer Diabetes Heart disease Hypercholesteremia Chronic kidney disease (CKD) Breast cancer Bleeding disorder Hypertension Uterine cancer Thyroid disease Stroke Social History Smoking and tobacco/nicotine status: current every day tobacco/nicotine user Alcohol intake: never Substance/Drug Use: never Marital status: Single Number of children: 0 Current occupational status: unemployed Female Reproductive History : 2 Data Anesthesia 05/19/25 05:29 Short CBC 05/19/25 Range/Units 05:29 WBC 11.31 (3.29-11.43) 10^3/uL Hgb 10.80 L (11.27-16.99) g/dL Hct 33.0 L (36-47) % MCV 89.7 (85-98) fl Plt Count 192 (157-399) 10^3/cmm Neut % (Auto) 61.4 % Neut # (Auto) 6.96 (1.8-7.7) 10^3/uL Blood Bank 05/19/25 05:29 Blood Type O Positive Rho(D) Type Rh positive
[2025-05-19] MEDS: ceFAZolin 2,000 mg SDV 2000 MG IVP (06:38)
[2025-05-19] MEDS: metoclopramide 5 mg/mL SDV 2 mL 10 MG IVP ×2 (06:38→09:02)
[2025-05-19] MEDS: BUPivacaine 0.5% INJ 30 mL INJECTION (06:38)
--- NOTE | 2025-05-19 06:43 | PC.NURSE ---
Bicitra not given prior to per directions of Dr Zavala.
--- NOTE | 2025-05-19 06:55 | P.HP_ITS ---
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 The patient had a previous section at 30 weeks gestation. We discussed her options including the option of TOLAC, and she elected to proceed with a section. Her has been relatively unremarkable. She has been on aspirin during this due to her history of severe preeclampsia in her previous . Her blood type was O+. Her antibody screen was negative. She is rubella nonimmune. She has been positive for marijuana twice in her . She failed her 1 hour glucose screen but passed her 3-hour glucose screen. The remainder of her infectious disease profile is within normal limits. She was GBS positive. Present Details : 2 Para: 1 Labs Rubella: Non-Immune RPR: Negative GBS: Positive Review of Systems 2 General: Reports: 10 or more systems reviewed and unremarkable except in HPI and below Const: Reports: fatigue; Denies: fever(s) Eyes: Denies: change in vision Card: Denies: chest pain Musc: Reports: back pain Ruel/Lymph: Denies: easy bruising Medications/Allergies Home Medications ?Medication ?Instructions ?Recorded ?Confirmed ?Last Taken ?Type sulfamethoxazole 800 1 tab PO BID 7 days #14 tabs 06/29/24 06/29/24 Unknown Rx mg-trimethoprim 160 mg tablet (Bactrim DS) mupirocin 2 % topical ointment 1 applic topical DAILY #15 grams 12/09/24 Unknown Rx aspirin 81 mg tablet,delayed 1 mg PO 1XD 05/19/25 0906/04 1 Day Ago History release ~05/18/25 escitalopram oxalate 10 mg tablet 1 mg PO 1XD 05/19/25 05/19/25 05/18/25 14:00 History vit no.95-ferrous 1 tab PO DAILY 05/19/2506/0405/18/25 14:00 History fumarate 28 mg-folic acid 800 mcg tablet () Allergies Allergy/AdvReac Type Severity Reaction Status Date / Time No Known Allergies Allergy Verified 08/08/24 17:48 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 Pimentel Surgical History (Updated 05/19/25 @ 07:00 by Amauri Elam MD) History of No pertinent past surgical history Family History Denies family history of Colon cancer Ovarian cancer Diabetes Heart disease Hypercholesteremia Chronic kidney disease (CKD) Breast cancer Bleeding disorder Hypertension Uterine cancer Thyroid disease Stroke Social History Smoking and tobacco/nicotine status: current every day tobacco/nicotine user Alcohol intake: never Substance/Drug Use: never Marital status: Single Number of children: 0 Current occupational status: unemployed History History History 2 1 Term Miscarriages/Ectopic Living Children Vitals/I&O/Wt Last Vital Signs Temp 98.4 F 05/19/25 05:21 Pulse 96 05/19/25 05:47 Resp 18 05/19/25 05:21 BP 106/66 05/19/25 05:47 O2 Del Method Room Air 05/19/25 05:00 Weight last 48 hrs Weight 171 lb Weight 171 lb Physical Exam 2 Const: COMMON NORMALS: patient oriented x3 and alert HENMT: COMMON NORMALS: moist oral mucous membranes HEAD & SCALP: normal to inspection Chest: COMMONS NORMALS: normal inspection of the chest Resp: COMMON NORMALS: clear to auscultation bilaterally AUSCULTATION: clear to auscultation bilaterally Cardio: COMMON NORMALS: regular rate and regular rhythm RATE: regular rate RHYTHM: regular rhythm GI: INSPECTION: Yes normal to inspection and Yes other (Gravid) Extremity: COMMON NORMALS: normal to inspection GENERAL: Yes edema (Trace) Neuro: COMMON NORMALS: patient oriented x3, moves all extremities and no sensory deficits noted SENSORIUM/ORIENTATION: Yes alert Psych: COMMON NORMALS: mental status grossly normal Skin: COMMON NORMALS: no rashes or lesions noted GENERAL SKIN EXAM: no rashes or lesions noted Data 05/19/25 05:29 Results Labs OB ([facility]): 2 Obstetrics 02/23/25 Blood Type O Positive Today Antibody Screen Negative Today Hct, (36-47) 33.0 % L Today Hgb, (11.27-16.99) 10.80 g/dL L Today Rho(D) Type Rh positive Today Plt Count, (157-399) 192 10^3/cmm Today HCG, Qual, (Negative) Negative 08/08/24 A&P Assessment and plan 1. 39 weeks gestation of : 2. History of : We will proceed with a section. We discussed the risks of bleeding, infection, and damage intra-abdominal organs. The patient had no further questions and wishes to proceed PDMP PDMP Reviewed: Not Reviewed Attestations 2 Medical Necessity Statement*: I anticipate routine and post care Coding Level of Care Code Acute Code for Chg Fwd Diagnoses 39 weeks gestation of Z3A.39 History of Z98.891
[2025-05-19 07:33] LABS: PCP Screen Urine Negative (Negative)
--- NOTE | 2025-05-19 08:08 | PM.OP ---
Operative Report Date of procedure: May 19, 2025 Pre-op diagnosis: 24-year-old 2 para 0101 at 39 weeks and 3 days presenting for a scheduled repeat section Post-op findings: Status post low-transverse section Procedure done: Lower transverse section Specimens removed/disposition: 1. Male with a weight of 6 pounds 4 ounces and Apgars of 8 and 8 2. Placenta with a three-vessel cord delivered intact Surgeon: Amauri Elam MD Estimated blood loss (mL): 400 Complications: None Procedure: The patient was brought back to the operating room where she was prepped and draped in usual sterile fashion. Anesthesia was found to be adequate. A lower transverse skin incision was then made with a #10 blade. I then dissected down to the underlying subcutaneous tissue until arriving at the prerectal fascia. The fascia was then nicked with the scalpel bilaterally. The fascial incisions were then carried laterally with Asif scissors. Attention was then turned to the superior aspect of the incision which was grasped with kochers and tented up away from the underlying rectus abdominis muscles. The muscles were then dissected away from the fascia manually, and later with Asif scissors. Attention was then turned to the inferior aspect of the incision, and the fascia was dissected away from the underlying muscle in similar fashion. The rectus abdominis muscles were then spread manually. The peritoneum was entered manually. Excellent visualization of the uterus was noted. A lower transverse uterine incision was then made with a #10 blade. Upon arriving at the intrauterine cavity, the uterine incision was then extended manually. The was noted to be in vertex position. The baby was delivered without difficulty. After delivery of the head, the mouth and nose were suctioned at the site of the incision. There was no meconium. There was no nuchal cord. The baby was then completely delivered and placed on the abdomen. The cord was cut and clamped. The baby was then handed to the waiting nurse. The placenta was removed intact. The uterus was externalized. The intrauterine cavity was cleansed of any remaining debris. The uterine incision was reapproximated in 2 layers. The first layer was performed with 0 Vicryl in a running locked stitch. The second layer was an imbricating stitch also using 0 Vicryl. The uterus was replaced into the abdomen. The peritoneum was then irrigated with warm saline. I reexamined the uterine incision and found it to be hemostatic. The rectus abdominis muscles were then reapproximated using 0 Vicryl in a running stitch. The fascia was then reapproximated using 0 Vicryl in running stitch. The subcutaneous tissue was also reapproximated using 0 Vicryl in a running stitch. The skin was reapproximated using micki. A sterile dressing was placed. All counts were correct x2. Both the mother and baby were in stable condition.
--- NOTE | 2025-05-19 08:30 | ANE.PACU2 ---
Inpatient post-anesthesia follow up: Airway intact: Yes Vital signs: Temperature 98.4 F Pulse Rate 59 Respiratory Rate 16 Blood Pressure 112/69 Pulse Oximetry 97 Oxygen Delivery Me thod Room Air Oxygen Flow Rate Fraction of Inspir ed Oxygen Hydration adequate: Yes Nausea and vomiting: No Pain level: 1 Mental status: Baseline
[2025-05-19] MEDS: PRENATAL VIT NO.130/IRON/FOLIC 1 EACH TABLET PO (09:28)
[2025-05-19] MEDS: HYDROcodone-acetaminophen 5-325 mg Tablet PO (14:35)
[2025-05-19 20:27] LABS: Hematocrit 28.6 % (36-47); Hemoglobin 9.60 g/dL (11.27-16.99); Mean Corpuscular HGB Conc 33.6 g/dL (30-55); Mean Corpuscular Hemoglobin 29.7 pg (27-33); Mean Corpuscular Volume 88.5 fl (85-98); Platelet Count 168 10^3/cmm (157-399); Red Blood Count 3.23 10^6/uL (3.85-5.65); White Blood Count 15.78 10^3/uL (3.29-11.43)
[2025-05-20 04:51] VITALS: RESP 15; TEMP 36.7
[2025-05-20 04:53] VITALS: BP 110/68; PULSE 67
--- NOTE | 2025-05-20 08:33 | PM.OBGYDC ---
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 39 weeks gestation of : 2. History of : Reason for Visit Reason for Visit: C Section Hospital Course Hospital Course The patient is a 25-year-old 2 para 0-1-0-1 at 39 weeks who presented for a scheduled repeat section. The section was unremarkable. Her course was also unremarkable. Her bleeding was within normal limits. Her pain is well-controlled. There were no concerns. Information Peripartum Data: Infant Delivery Method: Physical Exam Narrative: She is in no acute distress Lungs are clear auscultation bilaterally Her heart has a regular rate and rhythm Her fundus is below the umbilicus and firm Her dressing is clean, dry and intact Her extremities have trace edema Urinary Catheter Management: Hyde Latex Free: Cath Placed During This Visit: yes, but has since been removed by the nurse Reason for Continuing Indwelling Catheter: Decision to DC Catheter Urinary Catheter Date of Insertion: 05/19/25 Urinary Catheter Time of Insertion: 07:19 Date Urinary Catheter Removed: 05/19/25 Time Urinary Catheter Discontinued: 23:10 History History History 1 Term Miscarriages/Ectopic Living Children Discharge Data Studies Completed and Pending Pending at discharge Category Date Time Status High Risk PP Hemorrhage Stat Lab 05/19/25 05:29 Received Laboratory Results WBC 15.78 10^3/uL (3.29-11.43) H 05/19/25 20:21 RBC 3.23 10^6/uL (3.85-5.65) L 05/19/25 20:21 Hgb 9.60 g/dL (11.27-16.99) L 05/19/25 20:21 Hct 28.6 % (36-47) L 05/19/25 20:21 MCV 88.5 fl (85-98) 05/19/25 20:21 MCH 29.7 pg (27-33) 05/19/25 20:21 MCHC 33.6 g/dL (30-55) 05/19/25 20:21 RDW 12.5 % (12.1-15.1) 05/19/25 20:21 Plt Count 168 10^3/cmm (157-399) 05/19/25 20:21 MPV 10.2 fL (7.4-10.4) 05/19/25 20:21 Neut % (Auto) 61.4 % 05/19/25 05:29 Lymph % (Auto) 27.6 % 05/19/25 05:29 Pope % (Auto) 7.8 % 05/19/25 05:29 Eos % (Auto) 1.9 % 05/19/25 05:29 Baso % (Auto) 0.4 % 05/19/25 05:29 Neut # (Auto) 6.96 10^3/uL (1.8-7.7) 05/19/25 05:29 Lymph # (Auto) 3.1 10^3/uL (0.8-4.8) 05/19/25 05:29 Pope # (Auto) 0.9 10^3/uL (0.2-0.9) 05/19/25 05:29 Eos # (Auto) 0.2 10^3/uL (0.0-0.8) 05/19/25 05:29 Baso # (Auto) 0.0 10^3/uL (0.0-0.1) 05/19/25 05:29 Nucleated RBC % (auto) 0 % 05/19/25 05:29 Nucleated RBCs # 0.0 /100WBC 05/19/25 05:29 Urine Opiates Screen Negative ng/mL (Negative) 05/19/25 06:10 Ur Barbiturates Screen Negative ng/mL (Negative) 05/19/25 06:10 Ur Phencyclidine Scrn Negative ng/mL (Negative) 05/19/25 06:10 Ur Amphetamines Screen Negative ng/mL (Negative) 05/19/25 06:10 U Benzodiazepines Scrn Negative ng/mL (Negative) 05/19/25 06:10 Urine Cocaine Screen Negative ng/mL (Negative) 05/19/25 06:10 U Marijuana (THC) Screen Negative ng/mL (Negative) 05/19/25 06:10 Blood Type O Positive 05/19/25 05:29 Rho(D) Type Rh positive 05/19/25 05:29 Antibody Screen Negative 05/19/25 05:29 Vitals Last Vital Signs Temp 98.1 F 05/20/25 04:51 Pulse 67 05/20/25 04:53 Resp 15 05/20/25 04:51 BP 110/68 05/20/25 04:53 Pulse Ox 87 L 05/19/25 14:36 O2 Del Method Room Air 05/19/25 08:30 Results Labs OB ([facility]): Obstetrics US 02/23/25 Blood Type O Positive 05/19/25 Antibody Screen Negative 05/19/25 Hct, (36-47) 28.6 % L 05/19/25 Hgb, (11.27-16.99) 9.60 g/dL L 05/19/25 Rho(D) Type Rh positive 05/19/25 Plt Count, (157-399) 168 10^3/cmm 05/19/25 HCG, Qual, (Negative) Negative 08/08/24 Urine Opiates Screen, (Negative) Negative ng/mL 05/19/25 Ur Barbiturates Screen, (Negative) Negative ng/mL 05/19/25 Ur Phencyclidine Scrn, (Negative) Negative ng/mL 05/19/25 Ur Amphetamines Screen, (Negative) Negative ng/mL 05/19/25 U Benzodiazepines Scrn, (Negative) Negative ng/mL 05/19/25 Urine Cocaine Screen, (Negative) Negative ng/mL 05/19/25 U Marijuana (THC) Screen, (Negative) Negative ng/mL 05/19/25 Discharge Plan Discharge Patient Disposition: Home Condition: Stable Prescriptions: New ibuprofen 800 mg Tablet 800 mg PO TID Qty: 45 0RF hydrocodone-acetaminophen 5-325 mg Tablet 1 tab PO Q6H PRN (Reason: Moderate To Severe Pain) Qty: 28 0RF docusate sodium 100 mg Capsule 100 mg PO BID Qty: 14 0RF Continued escitalopram oxalate 10 mg tablet 1 mg PO 1XD PNV no.95-ferrous fumarate-FA [] 28 mg iron- 800 mcg Tablet 1 tab PO DAILY Discontinued sulfamethoxazole-trimethoprim [Bactrim DS] 800-160 mg tablet 1 tab PO BID 7 Days Qty: 14 0RF aspirin 81 mg tablet,delayed release (DR/EC) 1 mg PO 1XD mupirocin 2 % ointment 1 applic topical DAILY Qty: 15 0RF Discharge Order = DC NOW: Discharge Order (Routine); Ordered 05/20/25 Ordered By: Amauri Elam Referrals: Amauri Elam MD [Primary Care Provider, [facility]] - 05/27/25 10:50 am Discharge Diet: Usual diet Discharge Activity: Limit activity as instructed Patient Instructions: Depression (DC), Opioid Safety (DC), Preeclampsia and Eclampsia After Delivery (GEN), Hemorrhage (DC), OB Discharge Report, OB Food/Drug Interaction Guide, OB Care at Home, Opioid Safety, OB Vaginal Deliveries, Patient Portal & [place] Instructions, Abnormal Bleeding Discharge Attestations 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
[2025-05-20] MEDS: PRENATAL VIT NO.130/IRON/FOLIC 1 EACH TABLET PO (10:18)
[2025-05-20] MEDS: ferrous sulfate EC 325 mg Tablet PO (10:19)
[2025-05-20 10:21] VITALS: BP 109/60; PULSE 77
[2025-05-20 10:22] VITALS: TEMP 36.7
[2025-05-20] MEDS: HYDROcodone-acetaminophen 5-325 mg Tablet PO (11:45)
[2025-05-20] MEDS: measles,mumps,rubella pf Vial (w/diluent) 0.5 ML SUBCUT (12:47)
[2025-05-20 13:05] VITALS: BP 125/83; PULSE 91; RESP 16; TEMP 36.9; O2SAT 98
[2025-05-20 15:24] LABS: High Risk PP Hemorrhage BBK Notified
== END 2025-05-20 13:10 | disposition home or self-care (01) | DRG 788 ==
PROVIDERS: Admitting Provider Family Medicine; PCP Family Medicine; Visit Provider Family Medicine
PROC: 10D00Z1 Extraction of Products of Conception, Low, Open Approach (ICD-10-PCS; CPT 59514; principal; 2025-05-19 07:00)
DX: O34.211 Maternal care for low transverse scar from previous cesarean delivery (principal); N85.8 Other specified noninflammatory disorders of uterus; O99.824 Streptococcus B carrier state complicating childbirth; O99.334 Smoking (tobacco) complicating childbirth; F17.200 Nicotine dependence, unspecified, uncomplicated; Z3A.39 39 weeks gestation of pregnancy; Z37.0 Single live birth; Z79.82 Long term (current) use of aspirin
CPT/HCPCS: 36415; 51702; 59025; 59409; 80306; 85025; 85027; 86850; 86900; 90707; 96374; 96376; J0690; J1885; J2274; J2371; J2405; J2765; J3010; J3490; J7030; J7121; J9999